=== PATIENT | female | born 1955 ===

== ENCOUNTER 2017-04-26 10:39 | Emergency (ER) | payer BC ==
[2017-04-26 11:51] VITALS: BP 127/54
--- NOTE | 2017-04-26 12:14 | UC ---
Respiratory Complaint HPI - HPI Summary HPI Summary: cough x 3 days + nasal congestion, sore throat fever, chills, body aches - History of Current Complaint Chief Complaint: UCRespiratory Stated Complaint: BODY ACHES/ST/CHEST CONGESTION Time Seen by Provider: 04/26/17 12:01 Hx Obtained From: Patient Onset/Duration: Gradual Onset, Lasting Days - 3, Still Present Severity Initially: Moderate Severity Currently: Moderate Pain Intensity: 7 Character: Cough: Nonproductive Aggravating Factors: Exertion, Deep Breaths Associated Signs And Symptoms: Positive: Fever, Chills, URI, Nasal Congestion. Negative: Edema, Hoarseness, Sinus Discomfort - Allergies/Home Medications Allergies/Adverse Reactions: Allergies Allergy/AdvReac Type Severity Reaction Status Date / Time No Known Allergies Allergy Verified 04/26/17 11:35 Home Medications: Home Medications Insulin Pump 1 dose SUBCUT DAILY 04/26/17 [History Confirmed 04/26/17] PMH/Surg Hx/FS Hx/Imm Hx - Additional Past Medical History Additional PMH: HEP A Endocrine History: Diabetes - Surgical History Surgical History: Yes Surgery Procedure, Year, and Place: tonsillectomy. finger surgery. tubal 1988 - Family History Known Family History: Negative: Diabetes - Social History Alcohol Use: None Substance Use Type: None Smoking Status (MU): Heavy Every Day Tobacco Smoker Review of Systems Constitutional: Fever, Chills, Fatigue Skin: Negative Eyes: Negative ENT: Sore Throat, Nasal Discharge Respiratory: Cough Cardiovascular: Negative Is Patient Immunocompromised?: No All Other Systems Reviewed And Are Negative: Yes Physical Exam Triage Information Reviewed: Yes Appearance: Well-Appearing, No Pain Distress, Well-Nourished Vital Signs: Initial Vital Signs Temp 99.2 F 04/26/17 11:40 Pulse 72 04/26/17 11:40 Resp 18 04/26/17 11:40 BP 127/54 04/26/17 11:40 Pulse Ox 99 04/26/17 11:40 Vital Signs Reviewed: Yes Eyes: Positive: Conjunctiva Clear ENT: Positive: Normal ENT inspection, Hearing grossly normal, Pharynx normal, Nasal congestion, Nasal drainage, TMs normal Neck: Positive: Supple, Nontender, No Lymphadenopathy Respiratory: Positive: Chest non-tender, Lungs clear, Normal breath sounds Cardiovascular: Positive: RRR, No Murmur, Pulses Normal Abdominal Exam: Normal Skin Exam: Normal Diagnostic Evaluation - Laboratory O2 Sat by Pulse Oximetry: 99 Respiratory Course/Dx - Differential Dx/Diagnosis Provider Diagnoses: VIRAL ILLNESS Discharge - Discharge Plan Condition: Stable Disposition: HOME Prescriptions: Codeine Phosphate/Guaifenesin [Cheratussin AC] 10 ml PO Q8H #120 ml MDD 30 ML Patient Education Materials: Viral Syndrome (ED) Referrals: Davis Muñoz MD [Primary Care Provider] - 7 Days
== END 2017-04-26 12:27 | disposition home or self-care (01) ==
LOC: UCCORT 10:39
DX: B34.9 Viral infection, unspecified (principal); E11.9 Type 2 diabetes mellitus without complications; Z79.4 Long term (current) use of insulin; Z96.41 Presence of insulin pump (external) (internal); F17.210 Nicotine dependence, cigarettes, uncomplicated
CPT/HCPCS: 99212; G0463

== ENCOUNTER 2017-07-12 09:17 | Day surgery (SDC) | payer BC ==
--- NOTE | 2017-07-06 11:26 | HP ---
PREOPERATIVE HISTORY AND PHYSICAL: DATE OF ADMISSION/SURGERY: 07/12/17 [facility] DATE OF OFFICE VISIT: 07/04/17 ATTENDING SURGEON: Ese Yen MD * (DICTATED BY JOSE MANUEL VELASCO) PROCEDURE: Left wrist carpal tunnel release. CHIEF COMPLAINT: Numbness and tingling, left hand. HISTORY OF PRESENT ILLNESS: This is a 62-year-old female who complains of numbness, tingling and pain in her left hand, ongoing for a couple of years. The numbness and tingling include her thumb, index and ring fingers. She also has feelings of weakness, which are rather apparent while she is at work. 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 She has flare-ups of the problem, but the symptoms in her left hand have been quite persistent recently. Use of her hands make the symptoms worse. She has tried over-the- counter pain relievers and also ice, which are somewhat helpful. Wrist bracing has been minimally helpful. She gets symptoms at night that awaken her. She recently had an EMG nerve conduction study, which showed moderate left carpal tunnel syndrome. She has consented to proceed with surgical intervention at this time. PAST MEDICAL HISTORY: 1. Hypertension. 2. Hepatitis A as a child. 3. Hypercholesterolemia. 4. Diabetes mellitus type 2. 5. Seasonal allergies. PAST SURGICAL HISTORY: 1. Tonsillectomy. 2. Trigger finger release. CURRENT MEDICATIONS: 1. Lisinopril 20 mg daily. 2. Simvastatin 20 mg daily. 3. Multivitamin 1 daily. 4. Insulin pump. ALLERGIES: No known drug allergies. FAMILY MEDICAL HISTORY: Cancer. 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 She is a current smoker. She smoked a pack per day for 20 plus years. She denies recreational drug use and does not drink alcohol. REVIEW OF SYSTEMS: General: Negative for fevers, chills, or night sweats, unexplained weight loss. No known anesthesia problems. HEENT: Negative for headache, lightheadedness, syncopal episodes, visual changes. Integumentary: Negative for abrasions, lesions, or open wounds. Cardiothoracic: Negative for hypertension, chest pain, palpitations, edema. Respiratory: Negative for shortness of breath with exertion, chronic cough, wheezing. GI: Negative for nausea, vomiting, diarrhea, constipation, and GERD. : Negative for nocturia , urinary frequency, urgency, history of UTIs, or kidney problems. Musculoskeletal: Positive for current complaint. Neurological: Negative for paresthesias, numbness, history of seizure, stroke, poor balance. Negative for anxiety/depression. Endocrine: Positive for diabetes. Negative for thyroid issues. Hematologic: Negative for easy bruising, anemia, bleeding disorders, history of DVT. Infectious Disease: Positive for history of hepatitis A. Negative for MRSA, hepatitis C, HIV. PHYSICAL EXAMINATION GENERAL: Well-developed, well-nourished 62-year-old female, in no acute distress. VITAL SIGNS: Height 5 feet 4 inches, weight 117 pounds, pulse rate 72, blood pressure 138/60. HEENT: Normocephalic, atraumatic. Pupils are equal, round, and reactive to light and accommodation. Extraocular movements are intact. Throat is clear. NECK: Supple. No palpable lymph nodes. PULMONARY: Lungs are clear to auscultation bilaterally. No wheezes, rales, or rhonchi. CARDIOVASCULAR: S1, S2. No murmurs, rubs, or gallops. No edema. ABDOMEN: Positive bowel sounds, soft, nontender. NEUROLOGICAL: Alert and oriented x3. Cranial nerves II through XII are intact. Sensation is intact to light touch. MUSCULOSKELETAL: On exam of her left hand, there is no visible swelling nor atrophy of any musculature. She has slight weakness with thumb abduction on the left when compared to the right. Good strength with finger abduction. Positive median nerve compression test and Phalen's test on the left. Negative Tinel's at the wrist and elbow. Sensation is intact to light throughout the hand. IMAGING STUDIES: EMG and nerve conduction study show moderate left carpal tunnel syndrome. IMPRESSION: Left carpal tunnel syndrome. PLAN: The patient is scheduled to undergo a left wrist carpal tunnel release with Dr. Yen on 07/12/17. She will return to the office 10 days postop for followup and suture removal. A prescription for Ultracet was e-scribed to the patient's pharmacy for postoperative pain management. JOSE MANUEL VELASCO [id number]/[facility] #: [id number] LILIA
[~2017-07-12 09:17] MED LIST: Buffered Lidocaine 0.9% SYRIN* 5 ML/SYR SYRINGE INTRADERM ONE
[2017-07-12] MEDS ORDERED: Naloxone* 0.4 MG/ML 1 ML VIAL IV PRN (09:57)
[2017-07-12] MEDS ORDERED: Lidocaine 1% INJ* 10 MG/ML 30 ML SDV ONE (10:25)
[2017-07-12] MEDS ORDERED: Midazolam* 1 MG/ML 2 ML VIAL (2 MG) ONE (10:34)
[2017-07-12] MEDS ORDERED: fentaNYL* 50 MCG/ML 2 ML VIAL (100 MCG VIAL) ONE (10:34)
[2017-07-12 11:46] VITALS: BP 118/50
--- NOTE | 2017-07-13 13:39 | OP ---
DATE OF OPERATION: 07/12/17 [facility] DATE OF : 59 SURGEON: Ese eYn MD ELECTRICIAN MARINE: JOSE MANUEL Galindo ANESTHESIA: Local MAC. PRE-OP DIAGNOSIS: Left carpal tunnel syndrome. POST-OP DIAGNOSIS: Left carpal tunnel syndrome. OPERATIVE PROCEDURE: Left carpal tunnel release. ESTIMATED BLOOD LOSS: Zero. TOURNIQUET TIME: 5 minutes. INDICATION FOR PROCEDURE: Laurel is a 62-year-old female with numbness and tingling in the median nerve distribution of her left hand. She presents for left carpal tunnel release. DESCRIPTION OF PROCEDURE: The patient was brought to the operating room, was given a sedation anesthetic and a local infiltration of 10 cc of 1% plain lidocaine in the palm of her left hand. Skin of her left hand and forearm was prepped and draped in the usual sterile fashion. The hand and forearm were exsanguinated, and the tourniquet elevated to 250 mmHg. A longitudinal incision was made in the palm in line with the ring finger and we dissected sharply through the subcutaneous tissue down to the transverse carpal ligament. The ligament was divided sharply with a knife and then more proximally with the scissors. The nerve was dissected free from the surrounding tissue. Patient has a split median nerve with two separate branches in the carpal tunnel and additionally there was a lumbrical muscle that filled the carpal tunnel as well. The wound was copiously irrigated with saline and the skin edges were reapproximated with 4-0 nylon suture. The wound was dressed with Xeroform, 4x4, Webril, and an Zak wrap. The patient tolerated the procedure well and was brought to the recovery room in good condition. [id number]/[facility] #: [id number] MTDD
== END 2017-07-12 11:47 | disposition home or self-care (01) ==
LOC: OREAST 09:17
PROVIDERS: ATTEND Orthopaedic Surgery
DX: G56.02 Carpal tunnel syndrome, left upper limb (principal); I10 Essential (primary) hypertension; E78.00 Pure hypercholesterolemia, unspecified; E11.9 Type 2 diabetes mellitus without complications; J30.2 Other seasonal allergic rhinitis
CPT/HCPCS: J2250; J3010